=== PATIENT | female | born 1930 | race African-American/Black ===

== ENCOUNTER 2016-07-31 20:29 | Emergency (ER) | payer OTHER ==
[~2016-07-31] VITALS: Ht 162.6 cm; Wt 63.5 kg
[2016-08-01] MEDS ORDERED: TETANUS-DIPTH-ACEL PERTUSSIS 0.5ML SYRG IM ONE (00:15)
[2016-08-01] MEDS ORDERED: Acetam/CODEINE 120mg/12mg per 5mL UD PO ONE (00:15)
[2016-08-01] MEDS ORDERED: BACITRACIN TOP OINT 1 UD PKG TOP ONE (01:15)
[2016-08-01] MEDS ORDERED: LIDOCAINE 1% HCL (LOCAL ANESTH.) INJ 20ML MDV IN ONE (01:15)
[2016-08-01 02:15] VITALS: BP 135/75
== END 2016-08-01 02:30 | disposition home or self-care (01) ==
LOC: ER 20:56
DX: S81.012A Laceration without foreign body, left knee, initial encounter (principal); Z88.8 Allergy status to other drugs, medicaments and biological substances; I10 Essential (primary) hypertension; W01.0XXA Fall on same level from slipping, tripping and stumbling without subsequent striking against object, initial encounter; Y93.89 Activity, other specified; Y92.89 Other specified places as the place of occurrence of the external cause; Y99.8 Other external cause status
CPT/HCPCS: 12005; 73562; 90471; 90715; 99284; J2001